=== PATIENT | male | born 1950 | race Asian ===

== ENCOUNTER 2022-07-26 19:57 | Inpatient (IN) | payer MEDICARE, MEDICAID ==
[~2022-07-26] VITALS: Ht 170.2 cm; Wt 68.5 kg
[2022-07-26] MEDS ORDERED: ACETAMINOPHEN 325MG TABLET PO STA (21:47)
[2022-07-26] MEDS ORDERED: VANCOMYCIN 1G PREMIX 200 ML IV ONE (22:00)
[2022-07-26] MEDS ORDERED: SODIUM CHLORIDE 0.9% 1,000 ML IV ONE (22:00)
[2022-07-26] MEDS ORDERED: PIPERACILLIN/TAZ 3.375G PREMIX 50 ML IV ONE (22:00)
[2022-07-27] MEDS ORDERED: ACETAMINOPHEN 650MG SUPP PR NR (01:15)
[2022-07-27 01:16] LABS: HEMATOCRIT. 38.3 % (42.0-52.0); MEAN CORPUSCULAR HEMOGLOBIN 32.1 pg (28.0-32.0); MEAN CORPUSCULAR VOLUME 94.4 fL (80.0-94.0); MEAN PLATELET VOLUME 6.8 fl (7.4-10.4); PLATELET 136 x1000/uL (130-400); RED BLOOD CELL COUNT 4.06 mill/uL (4.7-6.1)
[2022-07-27 01:28] LABS: CHLORIDE 100 mEq/L (98-107)
[2022-07-27] MEDS ORDERED: HYDROCODONE/ACETAMINOPHEN 5/325MG TABLET PO PRN (01:30)
[2022-07-27] MEDS ORDERED: GUAIFENESIN 200MG/10ML SUGAR FREE UDC PO PRN (01:30)
[2022-07-27] MEDS ORDERED: DOCUSATE SODIUM 100MG CAPSULE PO PRN (01:30)
[2022-07-27] MEDS ORDERED: ONDANSETRON HCL 4MG/2ML INJ IV PRN (01:30)
[2022-07-27] MEDS ORDERED: PIPERACILLIN/TAZ 3.375G PREMIX 50 ML IV NR (01:30)
[2022-07-27] MEDS ORDERED: VANCOMYCIN 1G PREMIX 200 ML IV NR (01:30)
[2022-07-27] MEDS ORDERED: MAGNESIUM/ALUMINUM HYDROXIDE/SIMETHICONE 30ML UDC PO PRN (01:30)
[2022-07-27] MEDS ORDERED: ACETAMINOPHEN 325MG TABLET PO PRN ×2 (01:30)
[2022-07-27 02:25] LABS: CLARITY URINE TURBID (CLEAR); COLOR URINE DARK YELLOW (YELLOW); KETONES URINE TRACE (NEGATIVE); LEUKOCYTE ESTERASE URINE 3+ (NEGATIVE); NITRITE URINE NEGATIVE (NEGATIVE); OCCULT BLOOD URINE 3+ (NEGATIVE); PH URINE 5.5 (4.5-8.0); PROTEIN URINE 2+ (NEGATIVE)
[2022-07-27 05:38] LABS: PLATELET ESTIMATE NORMAL
[2022-07-27] MEDS ORDERED: PIPERACILLIN/TAZOBACTAM 3.375G in DEXT 5% WATER 50ML IV SCH (06:00)
[2022-07-27] MEDS: DEXT 5%/0.9% NACL 1,000 ML IV SCH (06:01)
[2022-07-27 07:20] LABS: CREATINE KINASE 106 IU/L (39-308); CREATINE KINASE MB FRACTION < 1.0 ng/mL (0.5-3.6)
[2022-07-27] MEDS ORDERED: PIPERACILLIN/TAZOBACTAM 3.375GM/50ML PREMIX IV SCH (08:00)
[2022-07-27 08:10] LABS: BASOPHILS % 0.1 % (0.0-2.0); HEMATOCRIT. 34.8 % (42.0-52.0); HEMOGLOBIN. 11.7 g/dL (14.0-18.0); LYMPHOCYTES % 9.3 % (20.0-50.0); MEAN CORPUSCULAR HEMOGLOBIN 31.7 pg (28.0-32.0); MEAN CORPUSCULAR VOLUME 94.7 fL (80.0-94.0); MEAN PLATELET VOLUME 6.5 fl (7.4-10.4); MONOCYTES % 9.5 % (2.0-8.0); NEUTROPHILS % 81.1 % (40.0-76.0); PLATELET 123 x1000/uL (130-400); RED BLOOD CELL COUNT 3.67 mill/uL (4.7-6.1)
[2022-07-27 08:26] LABS: CHLORIDE 106 mEq/L (98-107)
[2022-07-27 08:28] LABS: TOTAL IRON BINDING CAPACITY 271 ug/dL (250-450)
[2022-07-27] MEDS: PIPERACILLIN/TAZOBACTAM 3.375 G in DEXTROSE 5% WATER 50 ML IV SCH ×3 (08:33→22:00)
[2022-07-27 08:54] LABS: FOLIC ACID (FOLATE) SERUM 8.1 ng/mL (>5.38)
[2022-07-27] MEDS ORDERED: PANTOPRAZOLE SODIUM 40 MG/VIAL IV SCH (09:00)
[2022-07-27] MEDS: ENOXAPARIN 40MG/0.4ML SYR SUBCUT SCH (09:47)
[2022-07-27] MEDS: VANCOMYCIN 750MG PREMIX 150 ML IV SCH (12:00)
[2022-07-27] MEDS ORDERED: ALBUTEROL 6.7GM HFA INHALER ORI PRN (14:00)
[2022-07-27] MEDS: ZINC SULFATE 220 MG ( 50 ) CAPSULE PO SCH (14:30)
[2022-07-27] MEDS: CLONIDINE 0.1MG TABLET PO PRN (18:14)
[2022-07-27 18:50] LABS: CREATINE KINASE MB FRACTION 1.3 ng/mL (0.5-3.6)
[2022-07-27] MEDS: ASCORBIC ACID 500 MG TABLET PO SCH (21:00)
[2022-07-28 01:00] VITALS: BP 111/79
[2022-07-28] MEDS ORDERED: DOCU-138 MT (01:40)
[2022-07-28] MEDS ORDERED: IPRA4AER INH (01:40)
[2022-07-28] MEDS ORDERED: BACL-141 MT (01:40)
[2022-07-28] MEDS ORDERED: MULT-1146 MT (01:40)
[2022-07-28] MEDS ORDERED: MOM MT (01:40)
[2022-07-28] MEDS ORDERED: HALO5TAB2 MT (01:40)
[2022-07-28] MEDS ORDERED: ACET-2708 MT (01:40)
[2022-07-28] MEDS ORDERED: MIDO2.5T MT (01:40)
[2022-07-28] MEDS ORDERED: DONE5TAB7 MT (01:40)
[2022-07-28] MEDS ORDERED: BISA10SU62 RC (01:40)
[2022-07-28] MEDS ORDERED: LACT10SO30 PO (01:40)
[2022-07-28] MEDS ORDERED: TOPUD MT (01:40)
[2022-07-28] MEDS ORDERED: TAMS-11 MT (01:40)
[2022-07-28] MEDS ORDERED: QUET50TA MT (01:40)
[2022-07-28] MEDS ORDERED: TOPUD PO (01:40)
[2022-07-28] MEDS ORDERED: DIVA-75 MT (01:40)
[2022-07-28] MEDS: DEXT 5%/0.9% NACL 1,000 ML IV SCH ×2 (02:49→21:32)
[2022-07-28] MEDS: VANCOMYCIN 750MG PREMIX 150 ML IV SCH ×2 (03:23→15:30)
[2022-07-28 04:00] VITALS: BP 125/96
[2022-07-28] MEDS: PIPERACILLIN/TAZOBACTAM 3.375 G in DEXTROSE 5% WATER 50 ML IV SCH ×3 (05:50→21:33)
[2022-07-28 08:00] VITALS: BP 110/64
[2022-07-28 08:20] LABS: CHLORIDE 107 mEq/L (98-107)
[2022-07-28 08:38] LABS: T4 FREE 1.13 ng/dL (0.76-1.46)
[2022-07-28] MEDS: FAMOTIDINE 20MG/2ML VIAL IV SCH ×2 (09:59→21:32)
[2022-07-28] MEDS: ENOXAPARIN 40MG/0.4ML SYR SUBCUT SCH (09:59)
[2022-07-28] MEDS: DEXAMETHASONE 10 MG/ML VIAL IV SCH (10:00)
[2022-07-28] MEDS: ZINC SULFATE 220 MG ( 50 ) CAPSULE PO SCH (15:29)
[2022-07-28] MEDS: ASCORBIC ACID 500 MG TABLET PO SCH ×2 (15:30→21:32)
[2022-07-28 16:00] VITALS: BP 105/57
[2022-07-28] MEDS ORDERED: NALOXONE HCL 0.4MG/ML VIAL IV PRN (17:15)
[2022-07-28 20:00] VITALS: BP 137/66
[2022-07-29] VITALS (51 sets, daily range): BP systolic 68–164; BP diastolic 31–120
[2022-07-29] MEDS: VANCOMYCIN 750MG PREMIX 150 ML IV SCH ×3 (00:34→23:43)
[2022-07-29] MEDS: PIPERACILLIN/TAZOBACTAM 3.375 G in DEXTROSE 5% WATER 50 ML IV SCH ×3 (06:39→20:56)
[2022-07-29] MEDS: ENOXAPARIN 40MG/0.4ML SYR SUBCUT SCH (09:00)
[2022-07-29] MEDS: FAMOTIDINE 20MG/2ML VIAL IV SCH ×2 (09:54→20:54)
[2022-07-29] MEDS: ZINC SULFATE 220 MG ( 50 ) CAPSULE PO SCH (09:55)
[2022-07-29] MEDS: ASCORBIC ACID 500 MG TABLET PO SCH ×2 (09:55→20:54)
[2022-07-29] MEDS: DEXAMETHASONE 10 MG/ML VIAL IV SCH (09:56)
[2022-07-29] MEDS ORDERED: METOPROLOL TARTRATE 5MG/5ML VIAL IV NR (11:45)
[2022-07-29] MEDS ORDERED: AMIODARONE HCL 900 MG in DEXT 5% WATER 482 ML IV PRN (12:00)
[2022-07-29] MEDS ORDERED: AMIODARONE HCL 150 MG in DEXT 5% WATER 100 ML IV SCH (12:00)
[2022-07-29] MEDS ORDERED: PHENYLEPHRINE 100 MG in DEXT 5% WATER 240 ML IV PRN (12:30)
[2022-07-29 13:09] LABS: BG CARBOXYHEMOGLOBIN 0.1 % (0.5-1.5); BG DEOXYHEMOGLOBIN 3.1 % (0.0-5.0); BG HCO3 ACT 24.2 mmol/L (22.0-26.0); BG METHEMOGLOBIN 0.3 % (0.0-1.5); BG OXYGEN SATURATION 96.9 % (92.0-98.5); BG OXYHEMOGLOBIN 96.5 % (94.0-97.0); BG PCO2 42.2 mmHg (35.0-45.0); BG PH 7.376 (7.350-7.450); BG PO2 92.1 mmHg (75.0-100.0); BG SAMPLE SITE RIGHT RADIAL; BG TOTAL HEMOGLOBIN 13.3 g/dL (12.0-18.0); BG VENT MODE NASAL CANNULA
[2022-07-29] MEDS: DEXT 5%/0.9% NACL 1,000 ML IV SCH (14:23)
[2022-07-29 17:48] LABS: HEMATOCRIT 34.1 % (42.0-52.0); HEMOGLOBIN 11.6 g/dL (14.0-18.0); MEAN CORPUSCULAR HEMOGLOBIN 32.1 pg (28.0-32.0); MEAN CORPUSCULAR VOLUME 94.3 fL (80.0-94.0); PLATELET 148 x1000/uL (130-400); RED BLOOD CELL COUNT 3.61 mill/uL (4.7-6.1); RED CELL DISTRIBUTION WIDTH 13.4 % (11.6-14.6)
[2022-07-29 18:43] LABS: CHLORIDE 104 mEq/L (98-107)
[2022-07-29] MEDS: METOPROLOL TARTRATE 25MG TABLET PO SCH (20:55)
[2022-07-30] VITALS (52 sets, daily range): BP systolic 78–167; BP diastolic 44–141
[2022-07-30] MEDS: PIPERACILLIN/TAZOBACTAM 3.375 G in DEXTROSE 5% WATER 50 ML IV SCH ×2 (06:26→14:17)
[2022-07-30] MEDS: ENOXAPARIN 40MG/0.4ML SYR SUBCUT SCH (08:03)
[2022-07-30] MEDS: FAMOTIDINE 20MG/2ML VIAL IV SCH ×2 (08:03→21:19)
[2022-07-30] MEDS: DEXAMETHASONE 10 MG/ML VIAL IV SCH (08:03)
[2022-07-30] MEDS: ASCORBIC ACID 500 MG TABLET PO SCH ×2 (08:03→21:18)
[2022-07-30] MEDS: METOPROLOL TARTRATE 25MG TABLET PO SCH ×2 (08:03→21:19)
[2022-07-30] MEDS: ZINC SULFATE 220 MG ( 50 ) CAPSULE PO SCH (08:03)
[2022-07-30] MEDS: VANCOMYCIN 750MG PREMIX 150 ML IV SCH (11:19)
[2022-07-30 13:42] LABS: BASOPHILS % 0.1 % (0.0-2.0); HEMATOCRIT. 30.8 % (42.0-52.0); HEMOGLOBIN. 10.8 g/dL (14.0-18.0); LYMPHOCYTES % 12.9 % (20.0-50.0); MEAN CORPUSCULAR HEMOGLOBIN 32.7 pg (28.0-32.0); MEAN CORPUSCULAR VOLUME 93.5 fL (80.0-94.0); MEAN PLATELET VOLUME 7.2 fl (7.4-10.4); MONOCYTES % 3.2 % (2.0-8.0); NEUTROPHILS % 83.8 % (40.0-76.0); PLATELET 123 x1000/uL (130-400); RED BLOOD CELL COUNT 3.29 mill/uL (4.7-6.1); RED CELL DISTRIBUTION WIDTH 13.3 % (11.6-14.6)
[2022-07-30] MEDS: DEXT 5%/0.9% NACL 1,000 ML IV SCH ×2 (13:42→23:23)
[2022-07-30 14:12] LABS: CHLORIDE 104 mEq/L (98-107)
[2022-07-30] MEDS ORDERED: POTASSIUM CHLORIDE 20MEQ TABLET SR PO NR (19:45)
[2022-07-30] MEDS: MEROPENEM 1,000 MG in SODIUM CHLORIDE 0.9% 100 ML IV SCH (21:17)
[2022-07-30] MEDS: CLONIDINE 0.1MG TABLET PO PRN (21:19)
[2022-07-31] VITALS: BP 103/58
[2022-07-31] MEDS: MEROPENEM 1,000 MG in SODIUM CHLORIDE 0.9% 100 ML IV SCH ×3 (03:02→20:53)
[2022-07-31 04:00] VITALS: BP 133/66
[2022-07-31 08:00] VITALS: BP 154/80
[2022-07-31] MEDS: ASCORBIC ACID 500 MG TABLET PO SCH ×2 (08:53→20:54)
[2022-07-31] MEDS: ZINC SULFATE 220 MG ( 50 ) CAPSULE PO SCH (08:53)
[2022-07-31] MEDS: DEXAMETHASONE 10 MG/ML VIAL IV SCH (08:54)
[2022-07-31] MEDS: FAMOTIDINE 20MG/2ML VIAL IV SCH ×2 (08:54→20:53)
[2022-07-31] MEDS: ENOXAPARIN 40MG/0.4ML SYR SUBCUT SCH (08:54)
[2022-07-31] MEDS: METOPROLOL TARTRATE 25MG TABLET PO SCH ×2 (09:03→21:06)
[2022-07-31 12:00] VITALS: BP 146/55
[2022-07-31 16:00] VITALS: BP 150/90
[2022-07-31 20:00] VITALS: BP 191/103
[2022-07-31] MEDS: CLONIDINE 0.1MG TABLET PO PRN (21:06)
[2022-08-01] VITALS: BP 100/53
[2022-08-01 04:00] VITALS: BP 137/47
[2022-08-01] MEDS: MEROPENEM 1,000 MG in SODIUM CHLORIDE 0.9% 100 ML IV SCH ×3 (04:15→21:15)
[2022-08-01] MEDS: DEXT 5%/0.9% NACL 1,000 ML IV SCH (05:45)
[2022-08-01 08:00] VITALS: BP 140/67
[2022-08-01] MEDS: METOPROLOL TARTRATE 25MG TABLET PO SCH ×2 (08:33→21:00)
[2022-08-01] MEDS: ZINC SULFATE 220 MG ( 50 ) CAPSULE PO SCH (08:33)
[2022-08-01] MEDS: FAMOTIDINE 20MG/2ML VIAL IV SCH ×3 (08:34→21:15)
[2022-08-01] MEDS: ENOXAPARIN 40MG/0.4ML SYR SUBCUT SCH (08:34)
[2022-08-01] MEDS: DEXAMETHASONE 10 MG/ML VIAL IV SCH (08:34)
[2022-08-01] MEDS: ASCORBIC ACID 500 MG TABLET PO SCH (08:34)
[2022-08-01 12:00] VITALS: BP 114/55
[2022-08-01 16:00] VITALS: BP 145/74
[2022-08-02] MEDS: DEXT 5%/0.9% NACL 1,000 ML IV SCH (01:40)
[2022-08-02] MEDS: MEROPENEM 1,000 MG in SODIUM CHLORIDE 0.9% 100 ML IV SCH ×3 (03:18→20:00)
[2022-08-02 04:00] VITALS: BP 131/93
[2022-08-02 08:00] VITALS: BP 184/83
[2022-08-02] MEDS: FAMOTIDINE 20MG/2ML VIAL IV SCH ×2 (09:12→21:19)
[2022-08-02] MEDS: DEXAMETHASONE 10 MG/ML VIAL IV SCH (09:12)
[2022-08-02] MEDS: METOPROLOL TARTRATE 25MG TABLET PO SCH ×2 (09:13→21:20)
[2022-08-02] MEDS: ENOXAPARIN 40MG/0.4ML SYR SUBCUT SCH (09:13)
[2022-08-02 12:00] VITALS: BP 114/68
[2022-08-02 16:00] VITALS: BP 117/72
[2022-08-02 21:00] VITALS: BP 140/81
[2022-08-03] MEDS: DEXT 5%/0.9% NACL 1,000 ML IV SCH ×2 (02:08→04:49)
[2022-08-03 04:00] VITALS: BP 162/76
[2022-08-03] MEDS: MEROPENEM 1,000 MG in SODIUM CHLORIDE 0.9% 100 ML IV SCH ×2 (04:49→11:54)
[2022-08-03 08:00] VITALS: BP 145/69
[2022-08-03] MEDS ORDERED: AMIODARONE HCL 200 MG TABLET PO SCH (09:00)
[2022-08-03] MEDS: FAMOTIDINE 20MG/2ML VIAL IV SCH (09:11)
[2022-08-03] MEDS: METOPROLOL TARTRATE 25MG TABLET PO SCH (09:11)
[2022-08-03] MEDS: DEXAMETHASONE 10 MG/ML VIAL IV SCH (09:11)
[2022-08-03] MEDS: ENOXAPARIN 40MG/0.4ML SYR SUBCUT SCH (09:11)
[2022-08-03] MEDS ORDERED: POTASSIUM CHLORIDE 20MEQ TABLET SR PO NR (10:45)
[2022-08-03 12:00] VITALS: BP 137/72
[2022-08-03 16:00] VITALS: BP 112/76
[2022-08-03 16:33] LABS: BASOPHILS % 0.2 % (0.0-2.0); EOSINOPHILS % 0.2 % (0.0-5.0); HEMATOCRIT. 35.2 % (42.0-52.0); HEMOGLOBIN. 11.9 g/dL (14.0-18.0); LYMPHOCYTES % 16.4 % (20.0-50.0); MEAN CORPUSCULAR HEMOGLOBIN 32.2 pg (28.0-32.0); MEAN CORPUSCULAR VOLUME 95.1 fL (80.0-94.0); MEAN PLATELET VOLUME 7.7 fl (7.4-10.4); MONOCYTES % 2.6 % (2.0-8.0); NEUTROPHILS % 80.6 % (40.0-76.0); PLATELET 302 x1000/uL (130-400); RED CELL DISTRIBUTION WIDTH 13.7 % (11.6-14.6)
[2022-08-03 16:52] LABS: CHLORIDE 102 mEq/L (98-107)
[2022-08-03 17:12] VITALS: BP 112/76
== END 2022-08-03 21:30 | DRG 720 ==
LOC: ER 19:57 → MICUSO 07-27 00:05 → 7EST 07-28 00:20 → MICUSO 07-29 12:05 → 7EST 07-30 15:30
PROVIDERS: ADMIT Internal Medicine; ATTEND Internal Medicine
PROC: 06HY33Z Insertion of Infusion Device into Lower Vein, Percutaneous Approach (ICD-10-PCS; principal; 2022-07-29)
DX: A41.89 Other specified sepsis (principal); J96.01 Acute respiratory failure with hypoxia; J12.82 Pneumonia due to coronavirus disease 2019; U07.1 COVID-19; G93.40 Encephalopathy, unspecified; A41.51 Sepsis due to Escherichia coli [E. coli]; G30.9 Alzheimer's disease, unspecified; F02.80 Dementia in other diseases classified elsewhere, unspecified severity, without behavioral disturbance, psychotic disturbance, mood disturbance, and anxiety; J44.0 Chronic obstructive pulmonary disease with (acute) lower respiratory infection; D53.9 Nutritional anemia, unspecified; J44.9 Chronic obstructive pulmonary disease, unspecified; N39.0 Urinary tract infection, site not specified; F20.9 Schizophrenia, unspecified; F39 Unspecified mood [affective] disorder; N40.1 Benign prostatic hyperplasia with lower urinary tract symptoms; E87.20 Acidosis, unspecified; E88.09 Other disorders of plasma-protein metabolism, not elsewhere classified; G40.909 Epilepsy, unspecified, not intractable, without status epilepticus; B96.89 Other specified bacterial agents as the cause of diseases classified elsewhere; M06.9 Rheumatoid arthritis, unspecified; Z16.12 Extended spectrum beta lactamase (ESBL) resistance; Z87.891 Personal history of nicotine dependence
CPT/HCPCS: 36415; 36600; 71045; 71250; 80048; 80053; 80202; 81003; 82330; 82375; 82550; 82553; 82607; 82728; 82746; 82805; 82962; 83540; 83550; 83605; 83735; 83880; 84145; 84439; 84443; 84484; 85025; 85027; 85379; 87077; 87186; 87426; 87804; 93005; 93970; 99285; C9113; J0282; J1100; J1650; J2185; J2543; J3370; J3490; J7030; J7042; J7050; J7060

== ENCOUNTER → 2022-11-23 | Outpatient (CLI) | payer MEDICARE, MEDICAID ==
[~2022-11-23] MED LIST: ACET-2708 MT; BACL-141 MT; BISA10SU62 RC; DIVA-75 MT; DOCU-138 MT; DONE5TAB7 MT; HALO5TAB2 MT; IPRA4AER INH; LACT10SO30 PO; MIDO2.5T MT; MOM MT; MULT-1146 MT; QUET50TA MT; TAMS-11 MT; TOPUD MT; TOPUD PO
== END | disposition home or self-care (01) ==
LOC: CT 13:48
DX: C34.90 Malignant neoplasm of unspecified part of unspecified bronchus or lung (principal); J43.9 Emphysema, unspecified; J90 Pleural effusion, not elsewhere classified; R91.8 Other nonspecific abnormal finding of lung field; N20.0 Calculus of kidney; I70.0 Atherosclerosis of aorta; K80.20 Calculus of gallbladder without cholecystitis without obstruction
CPT/HCPCS: 71250